=== PATIENT | female | born 1970 | race Caucasian/White ===

== ENCOUNTER 2024-05-22 18:59 | Emergency (ER) | payer BC, SELFPAY ==
[2024-05-22 19:06] VITALS: BP 118/74; PULSE 66; RESP 14; TEMP 35.9; O2SAT 97; BMI 26.9
--- NOTE | 2024-05-22 19:25 | ED.GENADULT ---
HPI - General Adult General Date Seen: 05/22/24 Chief complaint: Extremity Pain/Injury, Upper Stated complaint: fell and hurt rt thumb Time Seen by Provider: 05/22/24 19:24 History of Present Illness HPI narrative: Very pleasant 53-year-old female presenting to the ER today for right thumb pain and swelling. This afternoon, approximately 2 or 2-1/2 hours prior to arrival [place]. She jammed her thumb and falling. When she fell she fell forward and jammed her thumb on the ground. She thinks she probably landed on an outstretched hand. She did really catch her thumb and hyperextended on a pole or edge of the step. She has had pain primarily in the thenar eminence and has been developing bruising and swelling. She is not having any numbness or thumb but she did have some temporary numbness affecting the radial aspect of her 4th finger. She is not having any pain in her other fingers however. No pain in the palm of her hand. No trouble with range of motion of her fingers. She does have tenderness with attempted abduction, adduction, and opposition of her thumb. She has had pain since then. She has been trying to ice it but the pain is getting worse. Related Data Home Medications ?Medication ?Instructions ?Recorded ?Confirmed aspirin 81 mg capsule 81 mg PO DAILY 05/22/24 05/22/24 coenzyme Q10 100 mg capsule (Co 100 mg PO DAILY 05/22/24 05/22/24 Q-10) rosuvastatin 20 mg tablet 20 mg PO DAILY 05/22/24 05/22/24 Allergies Allergy/AdvReac Type Severity Reaction Status Date / Time No Known Drug Allergies Allergy Verified 05/22/24 19:04 [facility] Social History Smoking Status: Never smoker How often do you have a drink containing alcohol: never AUDIT-C Alcohol total score: 0 Non-prescribed substance use: denies use Exam Narrative: Exam Narrative: Constitutional: Appears well-developed and well-nourished. Active. Polite Non-toxic appearing. HENT: Head: Atraumatic. No signs of injury. Nose: No nasal discharge. Mouth/Throat: Mucous membranes are moist. Pharynx is normal. Tonsils symmetric. Uvula midline. Airway patent. Eyes: Conjunctivae normal and EOM are normal. Pupils are equal, round, and reactive to light. Right eye exhibits no discharge. Left eye exhibits no discharge. No icterus. Neck: Normal range of motion. Neck supple. No adenopathy. No stridor. Cardiovascular: Normal rate and regular rhythm. Normal radial pulse. Brisk distal cap refill in the thumb in each finger. Pulmonary/Chest: Effort normal. No stridor. No respiratory distress. Musculoskeletal: Right upper extremity: Clavicle, shoulder, humerus, elbow, forearm, nontender. No deformity. Her primary her of tenderness is her felt. She has ecchymosis and swelling affecting the thenar eminence. She has slow range of motion and thumb. She is able to oppose her thumb making an okay sign with her index finger but is not able to parts picker oppose the thumb across her hand to make an okay sign with her pinky finger. She also has pain with adduction and abduction of her thumb. She is not tender over the phalanges or the MCP joint but is tender over carpometacarpal joint and the thenar eminence/metacarpal. No tenderness over the anatomic snuff blocks. Remainder of the volar wrist is nontender. Dorsal wrist is nontender. She has limited flexion extension of the wrist because it exacerbates her thumb pain. Normal pronation/supination of forearm. Intact radial, median, ulnar nerve and intact digital nerve sensory function. Neurological: Alert. Normal strength. No cranial nerve deficit or sensory deficit. Coordination normal. GCS eye subscore is 4. GCS verbal subscore is 5. GCS motor subscore is 6. Skin: Skin is warm. No rash noted. Const: Vital Signs, click to edit/add: Vital Signs - 24 hr 05/22/24 19:06 Temperature 96.7 F L Pulse Rate [Pulse Oximeter] 66 Respiratory Rate 14 Blood Pressure [Ri ght Upper Arm] 118/74 Pulse Oximetry 97 Oxygen Delivery Me thod Room Air Course Vital Signs Vital signs: Initial Vital Signs Temperature 96.7 F L 05/22/24 19:06 Temperature Source Temporal Artery Scan 05/22/24 19:06 Pulse Rate 66 05/22/24 19:06 Pulse Rhythm Regular 05/22/24 19:06 Respiratory Rate 14 05/22/24 19:06 Blood Pressure 118/74 05/22/24 19:06 Blood Pressure Mean 88 05/22/24 19:06 Blood Pressure Position Sitting 05/22/24 19:06 Pulse Oximetry 97 05/22/24 19:06 Oxygen Delivery Method Room Air 05/22/24 19:06 Vital Signs Temperature 96.7 F L 05/22/24 19:06 Pulse Rate 66 05/22/24 19:06 Respiratory Rate 14 05/22/24 19:06 Blood Pressure 118/74 05/22/24 19:06 Pulse Oximetry 97 05/22/24 19:06 Oxygen Delivery Method Room Air 05/22/24 19:06 Temperature 96.7 F L 05/22/24 19:06 Pulse Rate 66 05/22/24 19:06 Respiratory Rate 14 05/22/24 19:06 Blood Pressure 118/74 05/22/24 19:06 Pulse Oximetry 97 05/22/24 19:06 Oxygen Delivery Method Room Air 05/22/24 19:06 Medications Administered Medications: Discontinued Medications Generic Name Dose Route Start Last Admin Trade Name Freq PRN Reason Stop Dose Admin Ibuprofen 600 mg 05/22/24 19:34 05/22/24 19:39 Ibuprofen 600 Mg Tablet PO 05/22/24 19:35 600 mg ONCE ONE Administration Medical Decision Making [facility] Narrative Medical decision making narrative: Very pleasant 53-year-old female presenting to the ER today with pain and ecchymosis and swelling affecting her right thumb, specifically the thenar eminence after she had a mechanical trip fall at the post office today. Differential would include trapezium or 1st metacarpal fracture, Dacosta's fracture, dislocation, wrist sprain. She is not having any pain or tenderness over the snuffbox to suggest scaphoid fracture. She is not really having pain over the MCP joint to suggest a gamekeeper's thumb. X-rays of the thumb are obtained and are fortunately negative for any fracture or dislocation. Suspect possible contusion or sprain. She is immobilized in a removable Velcro thumb spica splint here in the ER tonight. Discussed immobilization, rest, ice, elevation. Will treat supportively at home with Tylenol or ibuprofen if needed. Follow up in ortho clinic in 3-5 days if not substantially improved. Precautions for return to the ER reviewed. Imaging Data XR right thumb: Attestation: I have reviewed the pertinent imaging results. My impression: No acute fracture or dislocation. Radiologist's impression: Findings/Impression: Bones: Alignment is normal. No fractures or bone lesions. No sign of acute injury. Joint spaces: Mild degenerative changes of the thumb interphalangeal joint. Soft tissues: Unremarkable. No radiopaque foreign body. Discharge Plan Discharge Clinical Impression: Sprain of thumb Patient Disposition: Home, Self-Care Instructions: Sprain (ED) Additional Instructions: As we discussed, right now your x-rays look good. No signs of broken bones or any dislocations. We suspect the films either bruised or sprained from this fall. Please wear the splint while your sleeping and while you are up and around except for when your in the shower to help protect and immobilize her thumb. You can use ibuprofen or Tylenol if needed for pain. Use an ice pack for 20 minutes every 3-4 hours if needed. Your thumb should improve over the next 2-3 days while you are resting it. If it is not substantially improved by Saturday, call the [facility] to arrange an ER follow-up appointment. Call [phone]. Prescriptions: No Action aspirin 81 mg capsule 81 mg PO DAILY rosuvastatin 20 mg tablet 20 mg PO DAILY coenzyme Q10 [Co Q-10] 100 mg capsule 100 mg PO DAILY Follow Up/Referrals: Trinh Barragan MD [Primary Care Provider] - Stand Alone Forms: Bilibot Info Instructions
--- NOTE | 2024-05-22 19:26 | CRLHL7_ITS ---
For Patients: As a result of the Cures Act, medical imaging exams and procedure reports are released immediately into your electronic medical record. You may view this report before your referring provider. If you have questions, please contact your health care provider. Indication: Fall, blunt trauma, swelling and pain. Technique: Right thumb 3 views. Comparison: None. Findings/Impression: Bones: Alignment is normal. No fractures or bone lesions. No sign of acute injury. Joint spaces: Mild degenerative changes of the thumb interphalangeal joint. Soft tissues: Unremarkable. No radiopaque foreign body. Dictated by Nic Zepeda MD @ 05/22/2024 8:09:25 PM (Electronically Signed)
[2024-05-22] MEDS: IBUPROFEN 600 MG TABLET PO (19:39)
--- OUTSIDE RECORDS SUMMARY | 2024-05-22 19:46 | XMS_ITS | Clinical Summary ---
Author Organization [facility] Address [address] [place] [address] Care Team Providers Care Moderate Needs Teacher Name Role Phone Elsewhere, Pcp Primary Care Provider Unavailabl e Source Comments Patient records contain information from all sites at [facility]. For routine questions regarding patient records, call [phone] during business hours, M-F 8:00 AM - 5:00 PM Central Time. Record requests for emergency care only can be directed to [phone] at any time.[facility] Allergies No known active allergies Social History Tobacco Use Types Packs/Day Years Used Date Smoking Tobacco: Never Assessed Dental Answer Date Recorded Dental: Regular Dentist Unknown 02/16/20 24 Comments Unknown Sex and Gender Information Value Date Recorded Sex Assigned at Not on file Legal Sex Female 11:10 AM QUALITY CONSULTANT Gender Identity Not on file Sexual Orientation Not on file Last Filed Vital Signs Vital Sign Reading Time Taken Comments Blood Pressure 141/100 02/16/2024 12:30 PM CDT Pulse 63 02/16/2024 12:30 PM CDT Temperature 36.6 C (97.9 F) 02/16/2024 12:30 PM CDT Respiratory Rate 16 02/16/2024 12:30 PM CDT Oxygen Saturation 100% 02/16/2024 12:30 PM CDT Inhaled Oxygen Concentration - - Weight 79.2 kg (174 lb 9.7 oz) 02/16/2024 9:47 A M CDT Height 170.2 cm (5' 7) 02/16/2024 9:52 AM CDT Body Mass Index 27.35 02/16/2024 9:47 AM CDT Plan of Treatment Health Maintenance Due Date Last Done Comments HIV Screening 1968 Hepatitis C Screening 1968 Hepatitis B Vaccines (1 of 3 - 19+ 3-dose series) 1987 Cervical/Vaginal Cancer Screening 02/11/2023 02/12/2020 Depression Screening (Annual PHQ-2) 06/17/2023 COVID-19 Vaccine (2023- season) 2024 01/31/2022, 05/18/2021, 08/24/2020, Additional history exists Influenza Vaccine (#1) 2024 , 03/13/2022, 02/12/2020, Additional history exists Mammogram 07/16/2024 07/16/2023, 06/19, 04/06/2022, Additional history exists Fasting Glucose for Diabetes Screening 02/06/2025 02/06/2022, 06/01/2021, 02/07/2021, Additional history exists Lipid (Cholesterol) Screening 02/06/2027 02/06/2022, 06/01/2021, 02/07/2021, Additional history exists DTaP,Tdap,and Td Vaccines (3 - Td or Tdap) 02/07/2032 02/06/2022, 01/25/2012, 11/29/2001 Zoster Vaccines Completed 02/12/2020, 01/21/2019 Colonoscopy Discontinued 04/07/2021 Colorectal Cancer Screening Discontinued CT Colonography Discontinued Cologuard Discontinued FIT Discontinued IPV Vaccines Aged Out No longer eligi ble based on patient's age to complete this topic Pneumococcal vaccine (0-64 years) Aged Out No longer eligible based on patient's age to complete this topic Insurance [facility] [place] [id number] Care Teams Moderate Needs Teacher Relationship Specialty Start Date End Date Elsewhere, Pcp PCP - General Internal Medicine 02/16/24
--- OUTSIDE RECORDS SUMMARY | 2024-05-22 19:46 | XMS_ITS | Clinical Summary ---
Author Organization [facility] er Address [address] [place] [address] Care Team Providers Care Automatic Maintainer Name Role Phone None, Pcp Primary Care Provider Unavailabl e Allergies No known active allergies Medications rosuvastatin (CRESTOR) 20 MG tablet Take 1 tablet (20 mg total) by mouth daily 4 Active latanoprost (XALATAN) 0.005 % ophthalmic solution Administer 1 drop into affected eye(s) daily 4 Active cholecalciferol , vitamin D3, 200 Unit tablet Take by mouth Active cetirizine (ZyrTEC) 10 MG chewable tablet Chew Acti ve Active Problems Problem Noted Date Diagnosed Date Menorrhagia with regular cycle 01/20/2018 Mixed hyperlipidemia 01/20/2018 Endometriosis 12/09/2008 Radiculopathy 12/09/2008 Overview (02/16/2024): Hx lumbar surgery. Mostly resolved, managed with exercise. Immunizations Name Administration Dates Next Due Hepatitis A 02/03/2021,01/30/2017 Influenza 6mo-64yrs Quad Pre servative Free IM 03/19/2023,03/13/2022,02/12/2020,2019,03/23/2015,03/12/2014 Influenza, Split Virus, Triv alent, Preservative 03/07/2012 TD Preservative Free 11/29/2001 Td 11/29/2001,09/15/2001 Tdap 02/06/2022,01/25/2012 Zoster Recombinant 02/12/2020,01/21/2019 Social History Tobacco Use Types Packs/Day Years Used Date Smoking Tobacco: Never Passive Smoke Exposure: Never Smokeless Tobacco: Never Tobacco Cessation:Counseling Given: Not Answered Alcohol Use Standard Drinks/Week Comments Yes 0 (1 standard drink = 0.6 oz pur e alcohol) Comments No Sex and Gender Information Value Date Recorded Sex Assigned at Not on file Legal Sex Female 8:29 AM CDT Gender Identity Not on file Sexual Orientation Not on file Last Filed Vital Signs Vital Sign Reading Time Taken Comments Blood Pressure 144/99 02/16/2024 8:39 AM CDT Pulse 73 02/16/2024 8:39 AM CDT Temperature 36.6 C (97.9 F) 02/16/2024 8:39 AM CDT Respiratory Rate 16 02/16/2024 8:39 AM CDT Oxygen Saturation 99% 02/16/2024 8:39 AM CDT Inhaled Oxygen Concentration - - Weight 79 kg (174 lb 2.6 oz) 02/16/2024 8:39 AM CDT Height 173 cm (5' 8.11) 02/16/2024 8:39 AM CDT Body Mass Index 26.4 02/16/2024 8:39 AM CDT Plan of Treatment Health Maintenance Due Date Last Done Comments CT Colonography 1968 Colonoscopy 1968 Colorectal Cancer Screening 1968 FIT-DNA 1968 Sigmoidoscopy 1968 iFOBT 1968 Pap Smear 02/11/2023 02/12/2020 Mammogram 07/16/2024 07/16/2023, 06/19, 04/06/2022, Additional history exists DTaP,Tdap,and Td Vaccines (3 - Td or Tdap) 02/07/2032 02/06/2022, 01/25/2012, 11/29/2001, Additional history exists Zoster Vaccines Completed 02/12/2020, 01/21/2019 COVID-19 Vaccine Completed 03/26/2024, 08/2022, 01/31/2022, Additional history exists Influenza Vaccine Completed 03/26/2024, , 03/19/2023, Additional history exists HPV Vaccines Aged Out No longer eligi ble based on patient's age to complete this topic Pneumococcal Vaccine: Pediatrics (0 to 5 Years) and At-Risk Patients (6 to 64 Years) Aged Out No longer eligible based on patient's age to complete this topic Insurance [facility] Care Teams Automatic Maintainer Relationship Specialty Start Date End Date None, Pcp [address] [place] [place] [address] PCP - General Manager Policy 02/16/24
--- OUTSIDE RECORDS SUMMARY | 2024-05-22 19:46 | XMS_ITS | Encounter Summary ---
Author Organization [facility] er Address [address] [place] [address] Care Team Providers Care Residential Door Installer Name Role Phone None, Pcp Primary Care Provider Unavailabl e Encounter Details Date Type Department Care Team (Latest Contact Info) Description 02/16/2024 Travel Social History Tobacco Use Types Packs/Day Years Used Date Smoking Tobacco: Never Passive Smoke Exposure: Never Smokeless Tobacco: Never Alcohol Use Standard Drinks/Week Comments Yes 0 (1 standard drink = 0.6 oz pur e alcohol) Comments No Sex and Gender Information Value Date Recorded Sex Assigned at Not on file Legal Sex Female 8:29 AM CDT Gender Identity Not on file Sexual Orientation Not on file documented as of this encounter Plan of Treatment Not on file documented as of this encounter Visit Diagnoses Not on filedocumented in this encounter Care Teams Residential Door Installer Relationship Specialty Start Date End Date None, Pcp [address] [place] [address] PCP - General Smash Piecer 02/16/24 documented as of this encounter
--- OUTSIDE RECORDS SUMMARY | 2024-05-22 19:46 | XMS_ITS | Encounter Summary ---
Author Organization [facility] Address [address] [place] [address] Care Team Providers Care Meteorological Equipment Repairer Name Role Phone Elsewhere, Pcp Primary Care Provider Unavailabl e Reason for Visit * Reason Comments Toenail Problem Left 1st toe Encounter Details Date Type Department Care Team (Late st Contact Info) Description 02/16/2024 9:46 AM CDT - 02/16/2024 12:34 PM CDT Emergency [facility] Emergency Department [address] [place] [address] Adin Gruber P.A.-C. [address] [place] [id number] Injury Toenail Initial Left (Primary Dx) Discharge Disposition: Home or Self Care Social History Tobacco Use Types Packs/Day Years Used Date Smoking Tobacco: Never Assessed Dental Answer Date Recorded Dental: Regular Dentist Unknown 02/16/20 24 Comments Unknown Sex and Gender Information Value Date Recorded Sex Assigned at Not on file Legal Sex Female 11:10 AM CMA Gender Identity Not on file Sexual Orientation Not on file documented as of this encounter Last Filed Vital Signs Vital Sign Reading [...] Mass Index 27.35 02/16/2024 9:47 AM CDT documented in this encounter Discharge Instructions * Discharge Instructions* Adin Gruber P.A.-C. - 02/16/2024 12:21 PM CDT Continue to monitor symptoms. If they worsen significantly, change in character or your otherwise concerned you should return to the emergency department. We wrapped her toe for added protection. Please keep wrapped as able. This should protect the nail from further damage. Follow up with your regular doctor as necessary. The nail should push out and fall off eventually with a new nail growing behind it. * Attachments The following attachments cannot be sent through Care Everywhere. * Nail Avulsion (Rwandan) documented in this encounter ED Notes * Adin Gruber P.A.-C. - 02/16/2024 11:55 AM CDT SUBJECTIVE CHIEF COMPLAINT/REASON FOR VISIT Toenail Problem (Left 1st toe) HISTORY OF PRESENT ILLNESS History provided by: Patient spanish interpreter/translator needed/used: no 53-year-old female arrives to our emergency department complaining of left great toe pain. Chart review finds history of hyperlipidemia, endometriosis, among other diagnoses. Patient describes stabbing her great toe recently. States the toenail has been lifted in his causing her pain. It bled quitea bit originally but has since stopped. Denies significant pain with walking but it is uncomfortable. Describes the toenail getting caught on things as it is lifted. No fevers or chills. No pain within the foot or ankle joint. She was seen at [facility] and informed they would not remove the nail and thatit would heal on its own. REVIEW OF SYSTEMS Constitutional: Negative for chills and fever. Respiratory: Negative for shortness of breath. Cardiovascular: Negative for chest pain. Gastrointestinal: Negative for abdominal pain. Musculoskeletal: Positive for extremity pain. Negative for joint swelling and myalgias. OBJECTIVE Initial Vitals Temperature 02/16/24 0953 36.9 ??C Pulse Rate 02/16/24 0953 71 Heart Rate -- Resp Rate 02/16/24 0953 16 Blood Pressure 02/16/24 0953 (!) 139/98 SpO2 02/16/24 0953 99 % Pain Score 02/16/24 0952 3 PHYSICAL EXAMINATION Constitutional: Nursing note and vitals reviewed. No distress. HENT: Head: Normocephalic and atraumatic. Nose: Nose normal. Mouth/Throat: Mucous membranes are moist. Eyes: Conjunctivae are normal. Right eye exhibits no discharge. Left eye exhibits no discharge. Neck: Neck supple. Cardiovascular: Normal rate. Pulses are strong and palpable. Capillary refill: takes less than 3 secondsEdema: no edema noted Pulmonary/Chest: Effort normal. No respiratory distress. Abdominal: Soft. Bowel sounds are normal. exhibits no distension. Musculoskeletal: General: No deformity. Cervical back: Normal range of motion and neck supple. Comments: Inspection of the left foot finds her great toenail lifted from the nailbed. It is intactand appears to be well seated within the cuticle. She has some minor blood CBD underneath the nail but is not actively bleeding. It is tender to the touch throughout. No tenderness within the tip of the toe or around the joint line however. Pressing on the nail does cause some discomfort. She is able to range the toe appropriately. Neurological: Alert. Skin: Skin is warm and dry. Psychiatric: She has a normal mood and affect. ASSESSMENT/PLAN 53-year-old female here with left great toenail injury. Pain and discomfort with a lifted nail. Able to ambulate and bear weight. Physical exam found no joint tenderness arrange motion deficit. No crepitus. Nailbed is lifted with a small amount of blood seepage within the nailbed. Nailbed does appear to be intact however in the nail is connected at its base. Differential diagnosis includes acute fracture, acute dislocation, infected joint, gout, nailbed compromise, among other diagnoses. Hemodynamically stable. Afebrile. Radiographs negative for acute fracture. No evidence of dislocation either, and clinical exam is free of deformity. Joint appears without swelling or erythema lead me to doubt she has gout. Nailbed appears to be intact. The nail itself appears to be well seated. No indication of a subungual hematoma and with the nail lifted it is free of pressure. She appears to have nail damage at this time without severe sequelae. Discussed options with the patient. We will wrap it with a Coban to protect it. I do believe it will receive itself with time, possibly falling off with a new nail replacing it. Our goal is to protect it from further damage by being caught on objects. Pain management should be with [id number]. She should consider follow-up with your regular doctor as needed. May consider Podiatry as well. Educational handouts were given. Patient expressed agreement understanding of treatment plan. Assessment and Plan PROBLEMS ADDRESSED THIS VISIT Left great toe pain. I reviewed the following external records: office records. ED Course as of 02/18/24905Feb 18, [id number] Radiograph completed during the visit was negative for an acute fracture. Final Diagnoses: as of 02/18/24905 Injury Toenail Initial Left The following tests were considered but ultimately not performed: No additional tests considered today. Escalation of care, including admission/observation, considered: Outpatient management appropriate. Adin Gruber P.A.-C. 02/18/24905 * Nai Aguilar R.N., CHARLES - 02/16/2024 9:54 AM CDT Last night pt's other son stepped on her left great toe. Left toenail is thick. Pt c/o 3/10 pain but when she touches it the pain increases. Pt went to [facility] initially then came here. Pt's other son isgetting and she just wants to be able to dance with him. Nai Aguilar R.N., CHARLES 02/16/24 09 documented in this encounter Plan of Treatment Not on file documented as of this encounter Procedures Procedure Name Priority Date/Time Associated Diagnosis Comments DX TOES LEFT 3 VIEWS RAD - Semiurgent (Fast; most ED patients; some inpatients) 02/16/2024 11:14 AM CDT documented in this encounter Results * DX Toes Left 3 Views (02/16/2024 11:14 AM CDT) Anatomical Region Laterality Modality Lower Extremity, Toes, Muscu loskeletal RST LOS, Musculoskeletal ARZ LOS, Muskuloskeletal FLA LOS Left Digit al Radiography Impressions 02/16/2024 11:17 AM CDT Soft tissue swelling left great toe. No evidence of acute fracture. Narrative 02/16/2024 11:17 AM CDT EXAM: DX TOES LEFT 3 VIEWS Procedure Note Bernie De Santiago M.D. - 02/16/2024 EXAM: DX TOES LEFT 3 VIEWS IMPRESSION: Soft tissue swelling left great toe. No evidence of acute fracture. Hans Comer M.D. [facility]AG[facility] PROCEDURES Final Result documented in this encounter Visit Diagnoses Diagnosis Injury Toenail Initial Left- Primary documented in this encounter Care Teams Meteorological Equipment Repairer Relationship Specialty Start Date End Date Elsewhere, Pcp PCP - General Internal Medicine 02/16/24 documented as of this encounter
--- OUTSIDE RECORDS SUMMARY | 2024-05-22 19:46 | XMS_ITS | Continuity of Care Document ---
Author Organization [facility] Address [address] [place] [address] [address] [place] [address] Phone Care Team Providers Care Reconciliation Machine Operator Name Role Phone Unavailable Unavailable Unavailable Medications Medication Instructions Dosage Effective Dates (start - stop) Status Comments Vicodin 5 mg-500 mg Tab 1-2 q 6 hours prn - Active [place]walk 10 mg-325 mg Tab 1-2 q 6 hours prn - Active Keflex 500 mg Cap 1 po qid x 10 days - Active Procedures Procedure Date Postop followup visit Low back disk surgery/decompress 2005 Advance Directives Directive Yes / No Effective Date File Name No Information Encounters Encounter Description Practice Location Reason(s) For Visit Diagnoses Date Provider Providers Copied on Encounter [facility], [address] [place] [address], [address], [place] tel:[phone] Aethon No Information [address] [facility], [address] [place] [address], [address], [place] tel:[phone] Aethon No Information [address] [facility], [address] [place] [address] [address], [place], [place], [id number], [place]. tel:[phone] Referring Provider: Gee Tavarez, [address], [place], [address]. tel:[phone] [facility], [address] [place], [place] [address], [place], [address], [place] tel:[phone] [facility] No Information 2-[address] [facility], [address], [place], [place], [id number], . tel:[phone] [facility], [address] [place], [place] [address] [address], [place], [place], [facility], [place] tel:[phone] [facility] No Information May-0 3-[address] [facility], [address], [place], [id number], [place]. tel:[phone] [facility], [address] [place], [place] [address], [place], [place], [facility], [place] tel:[phone] [facility] No Information May-0 1-[address] [facility], [address], [place], [place], [id number], . tel:[phone] Referring Provider: Gee Tavarez, [address], [address]. tel:[phone] Family History Family Member Type Diagnosis Age At Onset No Information Payers Payer name Insurance type Covered republican ID Authoriza tion(s) [employer] CI [id number] Social History Type Description Quantity Date Captured Comments Sex Female Smoking Status No Information Chief Complaint And Reason For Visit No Information Reason For Referral Reason For Referral No Information History Of Present Illness Encounter Date Complaint History Of Prese nt Illness No Information Functional Status Date Functional Assessmen t No Information Instructions Date Instruction Additional Infor mation No Information Assessments Type Assessment Date No Information Patient Care Teams Name Effective Dates (start - stop) Status Members No Information
--- OUTSIDE RECORDS SUMMARY | 2024-05-22 19:46 | XMS_ITS | Referral Summary ---
Author Organization [facility] Address [address] [place] [address] Care Team Providers Care Nail Setter Name Role Phone Elsewhere, Pcp Primary Care Provider Unavailabl e Source Comments Patient records contain information from all sites at [facility]. For routine questions regarding patient records, call [phone] during business hours, M-F 8:00 AM - 5:00 PM Central Time. Record requests for emergency care only can be directed to [phone] at any time.[facility] Allergies No known active allergies Social History Tobacco Use Types Packs/Day Years Used Date Smoking Tobacco: Never Assessed Dental Answer Date Recorded Dental: Regular Dentist Unknown 02/16/20 24 Comments Unknown Sex and Gender Information Value Date Recorded Sex Assigned at Not on file Legal Sex Female 11:10 AM [employer] Gender Identity Not on file Sexual Orientation [...] 02/16/2024 9:47 AM CDT Plan of Treatment Not on file Insurance [facility] DELLA MOSQUEDA [id number] Care Teams Nail Setter Relationship Specialty Start Date End Date Elsewhere, Pcp PCP - General Internal Medicine 02/16/24
--- OUTSIDE RECORDS SUMMARY | 2024-05-22 19:46 | XMS_ITS ---
Author Organization [facility] Address [address] [place] [address] Care Team Providers Care Relay Engineer Name Role Phone Unavailable Unavailable Unavailable Surgery Details Not on file Complications Check Surgery Details section. Procedure Estimated Blood Loss Check Surgery Details section. Procedure Findings Check Surgery Details section. Procedure Specimens Taken Check Surgery Details section.
--- OUTSIDE RECORDS SUMMARY | 2024-05-22 19:47 | XMS_ITS | Encounter Summary ---
Author Organization [facility] Address [address] [place] [address] Care Team Providers Care Environmental Health Inspector Name Role Phone None, Pcp Primary Care Provider Unavailabl e Reason for Visit * Reason Comments Toe Injury Left 1st Encounter Details Date Type Department Care Team (Late st Contact Info) Description 02/16/2024 8:38 AM CDT - 02/16/2024 9:07 AM CDT Emergency [facility] Emergency Room [address] [place] [id number] Roddy Drummond MD [address] [place], [place] [id number] Nail avulsion of toe, initial encounter (Primary Dx) Discharge Disposition: Home or Self [...] Mass Index 26.4 02/16/2024 8:39 AM CDT documented in this encounter Discharge Instructions * Discharge Instructions* Roddy Drummond MD - 02/16/2024 8:45 AM CDT Soak your toe in warm soapy water. A new nail should grow out but I would leave the old nail in place unless it falls off on its own, as this will protect your nailbed. Use Tylenol or Advil as neededfor pain. * Attachments The following attachments cannot be sent through Care Everywhere. * Nail Avulsion (Bhutanese) documented in this encounter Medications at Time of Discharge cetirizine (ZyrTEC) 10 MG chewable tablet Chew cholecalciferol, vitamin D3, 200 Unit tablet Take by mouth latanoprost (XALATAN) 0.005 % ophthalmic solution Administer 1 drop into affected eye(s) daily 02/05/2024 rosuvastatin (CRESTOR) 20 MG tablet Take 1 tablet (20 mg total) by mouth daily 02/10/2024 documented as of this encounter ED Notes * Nic Casiano RN - 02/16/2024 8:45 AM CDT Patient arrives with concern of Left Great Toenail Injury she sustained last evening. * Roddy Drummond MD - 02/16/2024 8:29 AM CDT HPI Chief Complaint Patient presents with Toe Injury Left 1st Patient is a 53-year-old female who got her left great toenail caught on something last night and partially avulsed it. It is lifted up and is quite painful and she wants me to remove the nail completely. Patient History Patient History No Known Allergies No past medical history on file. No past surgical history on file. No family history on file. Social History Tobacco Use Smoking status: Not on file Smokeless tobacco: Not on file Substance Use Topics Alcohol use: Not on file Drug use: Not on file Review of Systems Review of Systems Musculoskeletal: Injury to left great toenail Physical Exam ED Triage Vitals [02/16/24 0839] Temp Heart Rate Resp BP 36.6 ??C (97.9 ??F) 73 16 (!) 144/99 SpO2 Temp Source Heart Rate Source Patient Position 99 % Temporal Monitor Sitting BP Location FiO2 (%) Weight -- -- 79 kg (174 lb 2.6 oz) Body mass index is 26.4 kg/m??. Physical Exam Vitals and nursing note reviewed. Constitutional: Appearance: Normal appearance. Cardiovascular: Rate and Rhythm: Normal rate. Pulmonary: Effort: Pulmonary effort is normal. Musculoskeletal: Cervical back: Normal range of motion. Comments: Her left great toenail is partially avulsed it is lifted up. No significant bleeding or drainage coming from it. Is quite painful to palpate it. Skin: General: Skin is warm and dry. Neurological: General: No focal deficit present. Mental Status: She is alert and oriented to person, place, and time. Mental status is at baseline. Psychiatric: Mood and Affect: Mood normal. Behavior: Behavior normal. Thought Content: Thought content normal. Judgment: Judgment normal. No data recorded Procedures Labs Reviewed - No data to display ED Course & MDM Medical Decision Making I explained to her that I would rather leave the nail in place as it is going to be painful at the nailbed with her the nail as they are not and the nail currently will help protect the nailbed somewhat. A new nail will grow out and eventually this 1 will fall off. Recommend soaking in warm soapy water using Tylenol Advil as needed. Problems Addressed: Nail avulsion of toe, initial encounter: acute illness or injury Risk OTC drugs. Follow Up Follow-up with your primary care provider as needed. Patient's Medications No medications on file Discharge Instructions Attached Instructions NAIL AVULSION (LUXEMBOURGISH) [[id number]] Discharge Instructions Soak your toe in warm soapy water. A new nail should grow out but I would leave the old nail in place unless it falls off on its own, as this will protect your nailbed. Use Tylenol or Advil as neededfor pain. ED COURSE and CLINICAL IMPRESSION Clinical Impressions as of 02/16/24 08 Nail avulsion of toe, initial encounter Disposition: Discharge Roddy Drummond MD 02/16/24 0847 documented in this encounter Plan of Treatment Not on file documented as of this encounter Visit Diagnoses Diagnosis Nail avulsion of toe, initial encounter- Primary documented in this encounter Care Teams Environmental Health Inspector Relationship Specialty Start Date End Date None, Pcp [address] [place] [address] PCP - General Circus Trainer 02/16/24 documented as of this encounter
--- OUTSIDE RECORDS SUMMARY | 2024-05-22 19:47 | XMS_ITS | Data Portability ---
Author Organization [facility] Address [address] [facility] [address] [place] [address] Care Team Providers Care House Carpenter Name Role Phone NATALI BRUNO Primary Care Provider Assessment No assessment recorded. Plan of Treatment Reminders Order Date Submit Date Provider Last Modified By Organization Details Last Modified Time Details Appointments None recorded. Lab urinalysi s, dipstick 2023 024 [facility], [address], [place], [address], 4 10:49:16 urinary tract pathogens panel, NICOLE+probe , urine - add on labs: Chlamydia Trachomat is, Cytomegal ovirus, Herpes Simplex Virus (HSV) types 1/2, LATHA Virus, BK Virus, MRSA Phenotype s, Mycobacte rium Tuberculo sis, Nesseria Gonorrhea , Trichomon as Vaginalis 2023 024 [facility], [address] [place], [address], 4 09:48:22 Referral None recorded. Procedures None recorded. Surgeries None recorded. Imaging None recorded. Medication Orders None recorded. Patient TargetsNo targets recorded. Patient InstructionsNo instructions recorded. Reason for Referral None Reported. Results Created Date Observation Date Name Description Value Unit Range Abnormal Flag Note LastModifiedBy Organization Detail LastModifiedTime 05/04/20 24 05/04/2024 DAVID BILLS UTI- RECUR RENT, PERSI STENT , COMPL ICATE D UTI performingsi te Not Available [facility] [address], [place], [address], 05/06/2024 09:48:22 05/04/20 24 05/04/2024 DAVID BILLS UTI- RECUR RENT, PERSI STENT , COMPL ICATE D UTI performingsi te Not Available [facility] [address] [place], [address], 05/06/2024 09:48:27 05/04/20 24 05/04/2024 urina lysis , dipst ick BLOOD Trace (5 RBC/uL ) Not Available [facility] [address], [place], [address], 04/30/2024 09:21:36 05/04/20 24 05/04/2024 urina lysis , dipst ick BILIRUBIN Negati ve Not Available [facility] [address], [place], [address], 04/30/2024 09:21:36 05/04/20 24 05/04/2024 urina lysis , dipst ick UROBILINOGEN 0.2 mg/dL (Norm) Not Available [facility] [address], [place], [address], 04/30/2024 09:21:36 05/04/20 24 05/04/2024 urina lysis , dipst ick KETONES Negati ve Not Available [facility] [address], [place], [address], 04/30/2024 09:21:36 05/04/20 24 05/04/2024 urina lysis , dipst ick PROTEIN Negati ve Not Available [facility] [address], [place], [address], 04/30/2024 09:21:36 05/04/20 24 05/04/2024 urina lysis , dipst ick NITRITES Negati ve Not Available [facility] [address], [place], [address], 04/30/2024 09:21:36 05/04/20 24 05/04/2024 urina lysis , dipst ick GLUCOSE Negati ve Not Available [facility] [address], [place], [address], 04/30/2024 09:21:36 05/04/20 24 05/04/2024 urina lysis , dipst ick p.H. 6.0 Not Available [facility] [address], [place], [address], 04/30/2024 09:21:36 05/04/20 24 05/04/2024 urina lysis , dipst ick S.G. (Specific [place]) 1.010 Not Available [facility] [address], [place], [address], 04/30/2024 09:21:36 05/04/20 24 05/04/2024 urina lysis , dipst ick LEUKOCYTES Negati ve Not Available [facility] [address], [place], [address], 04/30/2024 09:21:36 04/29/20 24 11/08/2023 CT, urogr am No observ ation record ed. [email or web address] Not Available 11:45:34 Result Notes None recorded. Procedures Surgical History Date Name Laterality Status Provider Name and Address Organization Details Recorded Time Bladder Scan completed EVERETT CASAS PA-C [address] [place] [address],[address], [place], [address], [facility] 05/04/2024 10:45:44 section completed EVERETT CASAS PA-C [address] [place] [address],[address], [place], [address], [facility] 05/04/2024 10:43:10 Imaging Results Imaging Date Name Status LastModified by Organ ation Details LastModified Time 11/08/2023 CT, urogram completed [email or web address] Information not available 04/29/2024 11:45:34 Procedure Notes None recorded. Medical Equipment None Reported. Allergies No known drug allergies Medications Name Sig Start Date Stop Date Status Note LastModified by Organization Details LastModified Time latanoprost 0.005 % eye drops INSTILL 1 DROP INTO BOTH EYES AT BEDTIME active Not Available Not Available No t Available etodolac 300 mg capsule PLEASE SEE ATTACHED FOR DETAILED DIRECTION S active Not Available Not Available No t Available cephalexin 500 mg capsule TAKE 1 CAPSULE BY MOUTH THREE TIMES DAILY FOR 7 DAYS. 05/04 completed Not Available Not Available Not Available methylpredn isolone 4 mg tablets in a dose pack TAKE 6 TABLETS ON DAY 1 DIRECTED ON PACKAGE AND DECREASE BY 1 TAB EACH DAY FOR A TOTAL OF 6 DAYS 05/04 completed Not Available Not Available Not Available DentaGel 1.1 % BEGIN THE DAY AFTER SURGERY - USE DIRECTED ON THE PACKAGE 05/04 completed Not Available Not Available Not Available rosuvastati n 20 mg tablet TAKE 1 TABLET BY MOUTH EVERY DAY active Not Available Not Available No t Available chlorhexidi ne gluconate 0.12 % mouthwash PLEASE SEE ATTACHED FOR DETAILED DIRECTION S 05/04 completed Not Available Not Available Not Available sodium fluoride 1.1 %-potassium nitrate 5 % dental paste BRUSH TEETH THOROUGHL Y FOR AT LEAST 1 MINUTE & EXPECTORA TE. DO NOT RINSE. USE AT NIGHT 05/04 completed Not Available Not Available Not Available Vitals Date Recorded Body height Body mass index (BMI) Body weight Provider Name and Address Organization Details Last Updated DateTime 05/04/2024 170.18 cm 26.9 kg/m2 15964.89 g EVERETT CASAS PA-C [address] [place] [address],[address], [address] 05/04/2024 10:41:16 Social History Question Answer Notes LastModified by Organizat ion Details LastModified Time Tobacco Smoking Status Never Smoker EVERETT CASAS PA-C [address] [place] [address],[facility] [address], [place], [address], [facility] 05/04/2024 10:42:20 What Is Your Level Of Alcohol Consumption? Occasional Information not available 05/04/2024 What Is Your Level Of Caffeine Consumption? Occasional Information not available 05/04/2024 What Was The Date Of Your Most Recent Tobacco Screening? 05/04/2024 Information not available 05/04/2024 Have You Ever Been Counseled For Unhealthy Alcohol Use? No Information not available 05/04/2024 Do You Use Any Illicit Or Recreational Drugs? No Information not available 05/04/2024 Has Tobacco Cessation Counseling Been Provided? No Information not available 05/04/2024 How Many Days In The Past Year Have You Consumed 4 Or More Drinks? 0 Information no t available 05/04/2024 Sex: Unknown Functional Status None recorded. Mental Status None recorded. Family History Relationship Description Onset Age of this Age Resolved Age Notes LastModified by Organization Details LastModified Time Mother Malignant tumor of lung [email or web address] Not available 05/04 10:41:49 Mother Malignant tumor of cervix jgasperlin Not available 05/04 10:41:57 Maternal Grandmother Family history of breast cancer [email or web address] Not available 05/04 10:42:08 Medical History Condition Response Sexually Transmitted Infection N Diabetes N Other N Bleeding Disorder N High Blood Pressure N Kidney Stones N High Cholesterol N GERD/Acid Reflux N Heart Disease N Cancer N Depression N Lung Disease N Gynecological HistoryNo gynecological history recorded. Obstetrics History GPAL:G 0 P 0 0 0 0 Immunizations Vaccine Type Date Status Provider Name and Address Organization Details Recorded Time Influenza, split virus, quadrivalent, preservative 03/19/2023 completed Larissa prajapati [facility] 05/04/2024 10:33:19 zoster recombinant 01/21/2019 completed Larissa prajapati [facility] 05/04/2024 10:33:19 zoster recombinant 02/12/2020 completed Larissa prajapati [facility] 05/04/2024 10:33:19 COVID-19, mRNA, LNP-S, PF, 100 mcg/0.5mL dose or 50 mcg/0.25mL dose 07/27/2020 completed Larissa prajapati [facility] 05/04/2024 10:33:19 COVID-19, mRNA, LNP-S, PF, 100 mcg/0.5mL dose or 50 mcg/0.25mL dose 08/24/2020 completed Larissa Ana null, [facility] 05/04/2024 10:33:19 COVID-19, mRNA, LNP-S, PF, 100 mcg/0.5mL dose or 50 mcg/0.25mL dose 01/31/2022 completed Larissa Ana null, [facility] 05/04/2024 10:33:19 COVID-19, mRNA, LNP-S, PF, 100 mcg/0.5mL dose or 50 mcg/0.25mL dose 05/18/2021 completed Larissa Perez null, [facility] 05/04/2024 10:33:19 COVID-19, mRNA, LNP-S, PF, 50 mcg/0.5 mL 03[facility]19[facility]2023 [facility] 10:33:19 COVID-19, mRNA, LNP-S, PF, 50 mcg/0.5 mL 03/26/2024 completed Larissa prajapati, [facility] 05/04/2024 10:33:19 Tdap 01/25/2012 completed Larissa Ana null, [facility] 05/04/2024 10:33:19 Tdap 02/06/2022 completed Larissa Ana null, [facility] 05/04/2024 10:33:19 Influenza, split virus, trivalent, preservative 03/07/2012 completed Larissa Ana null, [facility] 05/04/2024 10:33:19 Influenza, split virus, trivalent, PF 03/26/2024 completed Larissa Ana null, [facility] 05/04/2024 10:33:19 Td (adult), 2 Lf tetanus toxoid, preservative free, adsorbed 11/29/2001 completed Larissa Ana null, [facility] 05/04/2024 10:33:19 Hep A, adult 01/30/2017 completed Larissa Ronjamaicaen null, [facility] 05/04/2024 10:33:19 Hep A, adult 02/03/2021 completed Larissa Ronningen null, [facility] 05/04/2024 10:33:19 Influenza, split virus, quadrivalent, PF 08/26/2019 completed Larissa Ronningen null, [facility] 05/04/2024 10:33:19 Influenza, split virus, quadrivalent, PF 02/12/2020 completed Larissa Ronningen null, [facility] 05/04/2024 10:33:19 Influenza, split virus, quadrivalent, PF 03/12/2014 completed Larissa Ronningen null, [facility] 05/04/2024 10:33:19 Influenza, split virus, quadrivalent, PF 03/13/2022 completed Larissa Ronningen null, [facility] 05/04/2024 10:33:19 Influenza, split virus, quadrivalent, PF 03/23/2015 completed Larissa Ronningen null, [facility] 05/04/2024 10:33:19 Influenza, split virus, quadrivalent, PF 04/27/2021 completed Larissa Ronningen null, [facility] 05/04/2024 10:33:19 Past Encounters Encounter ID Performer Location Encounter Start Date Encounter Closed Date Diagnosis/Indication Diagnosis SNOMED-CT Code Diagnosis ICD10 Code [id number] Larissa Ana [facility] [address] [place] [address] 05/04/2024 10:22:28 05/06/2024 09:58:48 Blood in urine [id number] R31.9 Health Concerns Section Related Observation LastModified by Organization Detai ls LastModified Time None Recorded Concern Status LastModified by Organization Details LastModified Time None Recorded Advance Directives Directive None Recorded Payers Encounter Date Sequence Insurance Name Policy Number Policy Jacobson Covered Member ID Jacobson Member ID Guarantor Name 05/04/2024 1 [place] [id number] Salvador Rogers [id number] Laureen Rogers Notes Date Note Type Note Provider Name and Address Organization Details Recorded Time 05/04/2024 text/html 53 yo F referred to urology for intermittent UTI symptoms and gross hematuria. Reports 2 episodes of sudden onset gross hematuria over the last year. First occurrence in October 2023, urine culture and CT urogram negative at that time, hematuria resolved within hours. Was seen by Dr Samaniego in January 2024 at which time cystoscopy and urine cytology were both negative. Today Laureen reports she had another episode of gross hematuria with clots in March which again resolved within hours. Associated with severe urinary frequency/urgency for a couple hours. Seen by urgent care and prescribed abx for UTI, though urine culture was ultimately negative. Today she denies urinary symptoms or ongoing hematuria. Denies h/o nephrolithiasis. No smoking or chemical exposure history. Reports she has only had 2 UTIs in her life. Works as a teacher. UA: 5 RBC/hpf, otherwise negativePVR: 11 ml MHX: does take daily baby aspirinSurg Hx: , uterine ablationOB Hx: Recent imaging: CT urogram unremarkable (11/08/23) DELLA Thompson - [facility] 05/04/2024 11:54:21 OBGyn Episode No OBEpisode recorded.
--- OUTSIDE RECORDS SUMMARY | 2024-05-22 19:47 | XMS_ITS | Clinical Summary ---
Author Organization [facility] Address [place], [place] [address] Care Team Providers Care Salesperson Women'S Hats Name Role Phone Trinh Barragan MD Primary Care Provider [phone] Allergies No known active allergies Medications Medication Sig Dispensed Refills Start Date End Date Status aspirin (ECOTRIN) 81 mg enteric coated tablet Take 1 Tablet (81 mg) by mouth once daily. 0 04/06/2021 Active cholecalciferol, vitamin D3, (VITAMIN D3 ORAL) Take by mouth. Active cetirizine HCl (ALLER-KRYSTYNA ORAL) Take by mouth. Acti ve rosuvastatin (CRESTOR) 20 mg tabletIndications:Mixe d hyperlipidemia,Elevate d coronary artery calcium score Take 1 Tablet (20 mg) by mouth once daily. 90 Tablet 3 03/26/2024 Active latanoprost (XALATAN) 0.005 % ophthalmic solutionIndications:Bi lateral ocular hypertension Place 1 Drop into both eyes at bedtime. 7.5 mL 3 04/01/2024 Active Cholecalciferol-Soy Isoflavone 2,000-64 unit-mg tab Take by mouth. Active Cetirizine HCl (ZYRTEC) 10 mg chewable tablet Chew by mouth. Activ e latanoprost (XALATAN) 0.005 % ophthalmic solution Place 1 Drop into the eye(s). 02/05/2024 Active Active Problems Problem Noted Date Diagnosed Date Colon polyp 04/10/2021 Overview (04/10/2021): Colonoscopy 03/2021 SSA, repeat in 5 years Muscle tear 07/01/2018 Mixed hyperlipidemia 01/20/2018 Menorrhagia with regular cycle 01/20/2018 Atypical nevus 10/01/2014 Endometriosis, site unspecified 12/09/2008 Female infertility of unspecified origin 009 Radiculopathy 12/09/2008 Overview (01/26/2013): Hx lumbar surgery. Mostly resolved, managed with exercise. Resolved Problems Problem Noted Date Diagnosed Date Resolved Date Superficial thrombophlebitis 03/30/2022 03/30/2022 Skin lesion 01/26/2013 10/01/2014 Encounters Date Type Department Care Team Description 04/24/2024 3:00 PM RESTAURANT SHIFT LEADER Office Visit [facility] [address] [place] [phone] Tiki Sharma OD Follow Up (IOP check) 04/24/2024 Travel 04/03/2024 Telephone [facility] [address] [place] [address] Arleen Blank PA Appointment Request (CHANDRAKANT REFERRAL) 04/03/2024 Medical Messaging [facility] [address] [place] [address] Trinh Barragan MD Urgent Care 04/02/2024 3:55 PM CDT Office Visit [facility] [address] [address] Arianna Rowe MD UTI 04/02/2024 Travel 03/29/2024 Refill [facility] [address] [place] [phone] Tiki Sharma OD Refill Request (Latanoprost/) 03/26/2024 10:50 AM CDT Office Visit [facility] [address] [place] [address] Trinh Barragan MD Physical (53 year old/); Medication Management; Toenail (Wonders about referral to podiatry ) 03/26/2024 Travel 03/03/2024 Telephone [facility] [address] [place] [phone] Tiki Sharma OD Prior Authorization (latanoprost (XALATAN) 0.005 % ophthalmic solution Approved February 02, 2024 to March 03, 2025) from Last 3 Months Immunizations Name Administration Dates Next Due COVID-19 VACCINE SPIKEVAX (M ODERNA 50MCG/0.5ML) 12YO+ PFS 03/26/2024 COVID-19 vaccine (Moderna 100mcg/0.5mL) PF, MDV 01/31/2022,05/18/2021,08/24/2020,2020 Hepatitis A (Adult) 02/03/2021,01/30/2017 INFLUENZA, IIV3 PF (AGE >= 6 MO) 03/26/2024 Influenza, IIV3 (Age >=3 years) 03/07/2012 Influenza, IIV4 03/13/2022,,08/26/2019,2014,03/12/2014 Influenza, IIV4 (=>6mos) MDV 03/19/2023 Td (Age >=7 Years) 11/29/2001,09/15/2001 Td, Preservative Free (age > = 7 Years) 11/29/2001 Tdap 02/06/2022,01/25/2012 Zoster (Shingrix-RZV, recombinant) 02/12/2020, Family History Medical History Relation Name Comments Heart Disease Father stents placed age 64 Hypertension Father Other Father of staph s epsis from skin infection Cancer-breast Maternal Grandmother Cancer Mother lung, and cervi amol Diabetes Paternal Grandmother Hypertension Sister Cancer-colon No Family History Relation Name Status Comments Father Maternal Grandmother Mother Paternal Grandmother Sister Social History Tobacco Use Types Packs/Day Years Used Date Smoking Tobacco: Never Passive Smoke Exposure: Past Smokeless Tobacco: Never Tobacco Cessation:Counseling Given: Not Answered Passive Exposure Comments:Childhood Alcohol Use Standard Drinks/Week Comments Yes 2 (1 standard drink = 0.6 oz pur e alcohol) moderate PHQ-2 Answer Date Recorded PHQ-2 TOTAL SCORE 0 03/26/2024 Social Connections Answer Date Recorded Do you often feel lonely or isolated from those around you? 0 10/30/2023 Financial Resource Strain Answer Date R ecorded Difficulty of Paying Living Expenses 3 10/30/2023 Difficulty of Paying Living Expenses Not on file 10/30/2023 Food Insecurity Answer Date Recorded Do you worry your food will run out before you are able to buy more? 1 10/30/2023 Transportation Needs Answer Date Record ed Does lack of transportation keep you from medica l appointments? 1 10/30/2023 Does lack of transportation keep you from work, meetings or getting things that you need? 1 10/30/2023 Housing Stability Answer Date Recorded What is your housing situation today? 1 10/30/2023 Sex and Gender Information Value Date Recorded Sex Assigned at Female 05/09/2021 7:58 AM RESTAURANT SHIFT LEADER Gender Identity Female 05/09/2021 7:58 AM RESTAURANT SHIFT LEADER Sexual Orientation Straight 05/09/2021 7: 58 AM RESTAURANT SHIFT LEADER Obstetrics History Para Term AB IAB SAB Ectopic Multiple Livin g Live Births 1 Date Outcome GA Total Labor Labor/2nd/3rd Weight Sex Type Anes PTL Tanesha A1 A5 Name Clin Term Last Filed Vital Signs Vital Sign Reading Time Taken Comments Blood Pressure 120/74 04/02/2024 4:24 PM CDT MAP - 91 Pulse 75 04/02/2024 4:24 PM CDT Temperature 36.7 C (98 F) 04/02/2024 4:24 PM CDT Respiratory Rate 18 04/02/2024 4:24 PM CDT Oxygen Saturation 97% 04/02/2024 4:24 PM CDT Inhaled Oxygen Concentration - - Weight 78.3 kg (172 lb 9.6 oz) 03/26/2024 11:07 AM CDT Height 170.2 cm (5' 7) 03/26/2024 11:07 AM CDT Body Mass Index 27.03 03/26/2024 11:07 AM CDT Plan of Treatment Upcoming Encounters Date Type Department Care Team (Late st Contact Info) Description 07/07/2024 9:00 AM RESTAURANT SHIFT LEADER Office Visit [facility] [address] [facility] [place] [address] Arleen Blank PA [address] [address] 09/16/2024 7:40 AM CDT Office Visit [facility] [address] [facility] [place] [address] Tiki Sharma Olivia, OD [address] [facility] [place] [address] Health Maintenance Due Date Last Done Comments Mammogram for age 45-75 07/16/2024 07/16/19, 04/06/2022, 03/08/2021, Additional history exists Pap test for age 21-65 02/11/2025 , 02/12/2020, 01/30/2017, Additional history exists BMI (ht and wt on same day) for age 18+ 03/26/2025 03/26/2024, 02/06/2023, 02/06/2022, Additional history exists Depression screening for age 12+ 03/29/2025 03/29/2024, 03/26/2024, 02/06/2023, Additional history exists Lipids for age 45-75 04/02/2029 04/02/2024, 02/06/2023, 02/06/2022, Additional history exists Colonoscopy through age 75 04/07/203104/07, 04/07/2021, 04/07/2021 Tetanus booster 02/07/2032 02/06/2022, 01/15, 11/29/2001, Additional history exists Zoster (shingles) series for age 50+ Completed 02/12/2020, 01/21/2019 Hepatitis C screening for age 18-79 Completed 02/06/2022 Tdap Completed 02/06/2022, 01/25/2012 HIV for age 15-65 Completed 02/06/2023 COVID-19 vaccine series Completed 03/26/20, 03/19/2023, 01/31/2022, Additional history exists Influenza for age 50-64 Completed 03/26/20, 03/19/2023, 03/13/2022, Additional history exists Pneumococcal series for age 6-64 Aged Out No longer eligible based on patient's age to complete this topic Procedures Procedure Name Priority Date/Time Associated Diagnosis Comments TRICHOMONAS, NING, AND BACTERIAL VAGINOSIS BY NICOLE Routine 04/02/2024 5:03 PM CDT Urinary symptom or sign BASIC METABOLIC PANEL Routine 04/02/2024 4:45 PM CDT Diabetes mellitus screening LIPID PANEL W REFLEX MEASURED LDL Routine 04/02/2024 4:45 PM CDT Elevated coronary artery calcium score TX BLOOD COUNT COMPLETE AUTO&AUTO DIFRNTL WBC STAT 04/02/2024 4:43 PM CDT Hematuria, unspecified type URINE CULTURE Routine 04/02/2024 4:16 PM CDT Urinary symptom or sign UA W/ SEDIMENT EXAM REFLEXED PER CRITERIA Routine 04/02/2024 4:16 PM CDT Urinary symptom or sign XR MAMMO RAKEL BILAT SCREEN Routine 07/16/2023 4:57 PM RESTAURANT SHIFT LEADER Encounter for screening mammogram for malignant neoplasm of breast LC HIV-1/O/2, 4TH GENERATION Routine 02/06/2023 9:58 AM CDT Encounter for screening for HIV ANTI HCV Routine 02/06/2022 9:50 AM CDT Need for hepatitis C screening test COLONOSCOPY SCREENING Routine 04/07/2021 10:07 AM CDT Screening for colon cancer RETAIL WAREHOUSE SUPERVISOR THIN PREP PAP SCREEN IMAGED Routine 02/12/2020 9:00 AM CDT Screening for malignant neoplasm of cervix from Last 3 Months or Most Recently Relevant to Health Maintenance Results * TRICHOMONAS, NING, AND BACTERIAL VAGINOSIS BY NICOLE (04/02/2024 5:03 PM CDT) SURESWAB(R) ADV BACTERIAL VAGINOSIS (BV), TMA NEGATIVE NEGATIVE [facility] NING SPECIES NOT DETECTED NOT DETECTED [facility] NING GLABRATA NOT DETECTED NOT DETECTED [facility] Comment: Ning species C. albicans, C. tropicalis, C. parapsilosis, and/or C. dubliniensis can be detected, but not differentiated, in the Ning spp. result. TRICHOMONAS VAGINALIS (TV), TMA NOT DETECTED NOT DETECTED [facility] Other VAGINAL SWAB / Unknown 04/02/2024 5:03 PM CDT 04/02/2024 5:04 PM CDT Arianna Rowe MD MICROBIOLOGY [employer] [address] [place] [address], [employer] [address] [place] [address] * (ABNORMAL) LIPID PANEL W REFLEX MEASURED LDL (04/02/2024 4:45 PM CDT) CHOLESTEROL, TOTAL 178 <200 mg/dL [facility] HDL CHOLESTEROL 80 > OR = 50 mg/dL [facility] TRIGLYCERIDES 218(H) <150 mg/dL [facility] Comment: If a non-fasting specimen was collected, consider repeat triglyceride testing on a fasting specimen if clinically indicated. Andrew et al. J. of Clin. Lipidol. 2015;9:129-169. LDL-CHOLESTEROL 69 mg/dL (calc) [facility] Comment: Reference range: <100 Desirable range <100 mg/dL for primary prevention; <70 mg/dL for patients with CHD or diabetic patients with > or = 2 CHD risk factors. LDL-C is now calculated using the Marlo-Fay calculation, which is a validated novel method providing better accuracy than the Friedewald equation in the estimation of LDL-C. Marlo SS et al. KERI. 2013;310(19): 9291-1281 (http://education.PayParade Pictures/faq/OSB658) CHOL/HDLC RATIO 2.2 <5.0 (calc) [facility] NON HDL CHOLESTEROL 98 <130 mg/dL (calc) [facility] Comment: For patients with diabetes plus 1 major ASCVD risk factor, treating to a non-HDL-C goal of <100 mg/dL (LDL-C of <70 mg/dL) is considered a therapeutic option. Blood BLOOD SPECIMEN / Unknown 04/02/2024 4:45 PM CDT 04/02/2024 4:45 PM CDT Narrative [facility] - 04/03/2024 11:15 AM CDT FASTING:NO FASTING: NO Trinh Barragan MD CHEMISTRY [employer] [facility] [address] [place] [address], [facility] [address] [place] [address] * BASIC METABOLIC PANEL (04/02/2024 4:45 PM CDT) Pathologist [facility] GLUCOSE 89 65 - 139 mg/dL [facility] Comment: Non-fasting reference interval UREA NITROGEN (BUN) 18 7 - 25 mg/dL [facility] CREATININE 0.74 0.50 - 1.03 mg/dL [facility] EGFR 95 > OR = 60 mL/min/1. 73m2 [facility] BUN/CREATININE RATIO SEE NOTE: 6 - 22 (calc) [facility] Comment: Not Reported: BUN and Creatinine are within reference range. SODIUM 142 135 - 146 mmol/L [facility] POTASSIUM 3.7 3.5 - 5.3 mmol/L [facility] CHLORIDE 103 98 - 110 mmol/L [facility] CARBON DIOXIDE 32 20 - 32 mmol/L [facility] ELECTROLYTE BALANCE 7 7 - 17 mmol/L (calc) [facility] CALCIUM 9.9 8.6 - 10.4 mg/dL [facility] Blood BLOOD SPECIMEN / Unknown 04/02/2024 4:45 PM CDT 04/02/2024 4:45 PM CDT Narrative [facility] - 04/03/2024 11:15 AM CDT FASTING:NO FASTING: NO Trinh Barragan MD CHEMISTRY [employer] [facility] [address] [place] [address], [facility] [address] [place] [address] * (ABNORMAL) CBC & DIFF [[id number]] - STAT (04/02/2024 4:43 PM CDT) Pathologist [facility] WHITE BLOOD CELL COUNT 6.7 3.8 - 10.8 Thousand/u L [facility]) RED BLOOD CELL COUNT 5.11(H) 3.80 - 5.10 Million/uL [facility] HEMOGLOBIN 14.3 11.7 - 15.5 g/dL [facility] HEMATOCRIT 42.2 35.0 - 45.0 % [facility] ([facility]) MCV 82.6 80.0 - 100.0 fL [facility] ([facility]) MCH 28.0 27.0 - 33.0 pg [facility] ([facility] Care) MCHC 33.9 32.0 - 36.0 g/dL [facility] Comment: For adults, a slight decrease in the calculated MCHC value (in the range of 30 to 32 g/dL) is most likely not clinically significant; however, it should be interpreted with caution in correlation with other red cell parameters and the patient's clinical condition. RDW 11.7 11.0 - 15.0 % [facility] ([facility]) PLATELET COUNT 186 140 - 400 Thousand/u L [facility] (Urgent Care) MPV 8.9 7.5 - 12.5 fL [facility] (Urgent Care) ABSOLUTE NEUTROPHILS 4,556 1,500 - 7,800 cells/uL [facility] ([facility]) ABSOLUTE LYMPHOCYTES 1,508 850 - 3,900 cells/uL [facility] (Urgent Care) ABSOLUTE MONOCYTES 523 200 - 950 cells/uL [facility] ([facility]gent Care) ABSOLUTE EOSINOPHILS 94 15 - 500 cells/uL [facility] (Urgent Care) ABSOLUTE BASOPHILS 20 0 - 200 cells/uL [facility] (Urgent Care) NEUTROPHILS 68 % [facility] (Urgent Care) LYMPHOCYTES 22.5 % [facility] (Ur[facility] Care) MONOCYTES 7.8 % [facility] (Urgent Care) EOSINOPHILS 1.4 % [facility]) BASOPHILS 0.3 % [facility] Special[facility] (Urgent Care) Blood BLOOD SPECIMEN / Unknown 04/02/2024 4:43 PM CDT 04/02/2024 4:44 PM CDT Arianna Rowe MD HEMATOLOGY [facility] [address] [place] [address], [facility] (Urgent Care) [address] [place] [address] * URINE CULTURE [[id number]] (04/02/2024 4:16 PM CDT) CULTURE, URINE, ROUTINE SEE NOTE [facility] Comment: CULTURE, URINE, ROUTINE Micro Number: [id number] Test Status: Final Specimen Source: Urine Specimen Quality: Adequate Result: No Growth Urine URINE SPECIMEN / Unknown 04/02/2024 4:16 PM CDT 04/02/2024 4:16 PM CDT Arianna Rowe MD MICROBIOLOGY [employer] [facility] [address] [place] [address], [facility] [address] [place] [address] * (ABNORMAL) UA W/ SEDIMENT EXAM REFLEXED PER CRITERIA [[id number]] (04/02/2024 4:16 PM CDT) COLOR YELLOW YELLOW [facility]) APPEARANCE CLEAR CLEAR [facility]) SPECIFIC GRAVITY < OR = 1.005 1.001 - 1.035 [facility]) PH 5.5 5.0 - 8.0 [facility]) GLUCOSE NEGATIVE NEGATIVE [facility]) BILIRUBIN NEGATIVE NEGATIVE [facility] ([facility]) KETONES NEGATIVE NEGATIVE [facility] ([facility]) OCCULT BLOOD 2+(A) NEGATIVE [facility]) PROTEIN NEGATIVE NEGATIVE [facility]) NITRITE NEGATIVE NEGATIVE [facility]) LEUKOCYTE ESTERASE TRACE(A) NEGATIVE [facility] ([facility]) WBC UA 6-10(A) < OR = 5 /HPF [facility] ([facility]) RBC UA 0-2 < OR = 2 /HPF [facility]) SQUAMOUS EPITHELIAL CELLS UA 0-5 < OR = 5 /HPF [facility] ([facility]) BACTERIA UA FEW(A) NONE SEEN /HPF [facility]) NOTE UA [facility]) Comment: This urine was analyzed for the presence of WBC, RBC, bacteria, casts, and other formed elements. Only those elements seen were reported. Urine URINE SPECIMEN / Unknown 04/02/2024 4:16 PM CDT 04/02/2024 4:16 PM CDT Arianna Rowe MD [facility]INE [facility] [address] [place] [address], [facility] (Urgent Care) [address] [place] [address] * XR MAMMO RAKEL BILAT SCREEN (07/16/2023 4:57 PM RESTAURANT SHIFT LEADER) Anatomical Region Laterality Modality BREASTS, Breast Left, Breast Right Bilateral Mammography Impressions 07/17/2023 2:39 PM RESTAURANT SHIFT LEADER There is no radiographic evidence for malignancy. Recommend annual mammograms. MAMMOGRAM ASSESSMENT: ACR 1 Negative PATIENTS: You will also receive a letter with your examination results in an easy to read format. If you have questions about your results, please contact your referring provider. Narrative 07/17/2023 2:39 PM RESTAURANT SHIFT LEADER For Patients: As a result of the Century Cures Act, medical imaging exams and procedure reports are released immediately into your electronic medical record. You may view this report before your referring provider. If you have questions, please contact your health care provider. XR MAMMO RAKEL BILAT SCREEN [[id number]] CLINICAL HISTORY: This is an asymptomatic 53 y.o. patient. INDICATION FOR EXAM: Mammogram Screening. TECHNIQUE: CC & MLO views were obtained. This study was evaluated with the assistance of Computer-Aided Detection. Breast Tomosynthesis was used in interpretation. COMPARISON FILM: Yes 04/06/22 [facility] 03/08/21 [employer] FINDINGS: The breasts are heterogeneously dense, which may obscure small masses. There are no dominant masses, suspicious micro calcifications or areas of architectural distortion. Trinh Barragan MD MAMMO * LC HIV-1/O/2, 4TH GENERATION (02/06/2023 9:58 AM CDT) HIV Scr 4th Gen Non Reactive Non Reactive 02/08/2023 2:08 PM CDT [facility] Comment: HIV Negative HIV-1/HIV-2 antibodies and HIV-1 p24 antigen were NOT detected. There is no laboratory evidence of HIV infection. Blood BLOOD SPECIMEN / Unknown Venipuncture / Unknown 02/06/2023 9:58 AM CDT 02/06/2023 9:59 AM CDT Narrative [facility] - 02/08/2023 2:08 PM CDT Performed at: [facility] [address] [place], [place] [id number] Independent Agent Music Education: Matt Barnes MD, Phone: [phone] Trinh Barragan MD LABORATORY [facility] ([facility]) [facility] [place] [address], [place] * ANTI HCV (02/06/2022 9:50 AM CDT) Pathologist [facility] HEPATITIS C ANTIBODY Non-React vikas Non-React vikas 02/06/2022 7:00 PM CDT [facility] Comment:Antibodies to HCV no t detected; does not exclude the possibility of exposure to HCV. Blood BLOOD SPECIMEN / Unknown Venipuncture / Unknown 02/06/2022 9:50 AM CDT 02/06/2022 9:50 AM CDT Trinh Barragan MD SEND OUTS [facility] [address] [place] [address], [place] * COLONOSCOPY (04/07/2021 10:00 AM CDT) 04/07/2021 10:0 0 AM CDT Narrative Transcriptions Marlo Pulido MD - 04/07/2021 11:42 AM CDT Patient Name: Aissatou Carvajal Procedure Date: 04/07/2021 Gender: Female Date of : 1970 Admit Type: Outpatient Procedure: Colonoscopy Proceduralist: Marlo Pulido MD , Glendy Saavedra, RN(Nurse) Referring MD: Trinh Barragan Indications/Pre-Op Diagnosis: Screening for colorectal malignant neoplasm, This is the patient's first colonoscopy Medications: Fentanyl 100 micrograms IV, Midazolam 4 mgIV, The level of sedation administered wasmoderate Procedure Description: The patient had risks, benefits and alternatives explained to andgave informed consent. The patient had a stable cardiopulmonary status and judged an adequate candidate for conscious sedation. The Colonoscope was passed through the anus and advanced to thececum, identified by appendiceal orifice and ileocecal valve. Thecolonoscopy was performed without difficulty. The patient tolerated the procedure well. The quality of the bowel preparation was good. The ileocecal valve, appendiceal orifice, and rectum were photographed. Complications: No immediate complications. Estimated Blood Loss & Specimen: Estimated blood loss: none. Specimen collected - Yes and sent to Laboratory Findings: The perianal and digital rectal examinations were normal. A 5 mm polyp was found in the cecum. The polyp was sessile. The polyp was removed with a cold snare. Resection and retrieval werecomplete. The exam was otherwise without abnormality. Impressions/Post-Op Diagnosis: - One 5 mm polyp in the cecum, removed with a cold snare. Resectedand retrieved. - The examination was otherwise normal. Recommendation: - Patient has a contact number available for emergencies. The signsand symptoms of potential delayed complications were discussed with the patient. Return to normal activities tomorrow. Written discharge instructions were provided to the patient. - Resume previous diet. - Continue present medications. - Await pathology results. - Repeat colonoscopy is recommended. The colonoscopy date will be determined after pathology results from today's exam become available for review. - Avoid heavy lifting greater than 30 lbs., asprin/ nonsteroidal medicines, exercise and strenuous activity for 2 weeks. Moderate Sedation: Moderate (conscious) sedation was administered by the endoscopy nurse and supervised by the endoscopist. The following parameters were monitored: oxygen saturation, heart rate, respiratory rate, blood pressure, adequacy of pulmonary ventilation and reponse to care. Please refer to the patient's medical record flowsheets and nursing notes for moderate sedation details. Total physician intraservice time was 22 minutes. Marlo Pulido MD 04/07/2021 11:42:15 AM This report has been signed electronically. Note Initiated On: 04/07/2021 10:00 AM Procedure Code(s): --- Professional --- 24076, Colonoscopy, flexible; with removalof tumor(s), polyp(s), or other lesion(s) bysnare technique Diagnosis Code(s): --- Professional --- Z12.11, Encounter for screening formalignant neoplasm of colon K63.5, Polyp of colon CPT copyright 2020 [employer]. All rights reserved. The codes documented in this report are preliminary and upon assistant professor of physics reviewmay be revised to meet current compliance requirements. Scope In: 11:17:28 AM Scope Withdrawal Time 0 hours 11 minutes 13 seconds Scope Out: 11:37:54 AM Marlo Pulido MD PROCEDURE ORD * RETAIL WAREHOUSE SUPERVISOR THIN PREP PAP SCREEN IMAGED [[id number]] (02/12/2020 9:00 AM CDT) Case Report Gynecologic Cytology Report Case: [id number] Authorizing Provider: Trinh Barragan MD Collected: 02/12/2020 0900 Ordering Location: [facility] Received: 02/12/2020 1021 Clinic First Screen: Sukhjinder Choudhary Specimen: RETAIL WAREHOUSE SUPERVISOR ThinPrep Vial Screening, Cervical 02/25/2020 8:39 AM CDT [facility] INTERPRETATION/ RESULT NEGATIVE FOR INTRAEPITHELIAL LESION OR MALIGNANCY (NIL) (none) 02/25/2020 8:39 AM CDT [facility] IMEN ADEQUACY Satisfactory for evaluation No endocervical component seen 02/25/2020 8:39 AM CDT [facility] HPV REQUEST HPV and PAP 02/25/2020 8:39 AM CDT [facility] Date of LMP ablation 02/25/2020 8:39 AM CDT [facility] Last Pap Date 01/30/17 02/25/2020 8:39 AM CDT [facility] Last Pap Result NIL 0 8:39 AM CDT [facility] Abnormal Pap or Bradley Bx in last 5 years No 02/25/2020 8:39 AM CDT [facility] Menstrual Status Hormonally Suppressed 02/25/2020 8:39 AM CDT [facility] Bradley Bx Done Today No 02/25/2020 8:39 AM CDT [facility] Additional Information None given 02/25/2020 8:39 AM CDT [facility] Comment: Cytology is screened at [facility] - [address], [place] [address] and [facility] - [address], [place] [address] and [facility] - [address] [place] [address] Interpreted at [facility] - [address], [place] [address] Automated Review Successful 02/25/2020 8:39 AM CDT [facility] Comment:Specimen processed s uccessfully by automated safety advisor device, ThinPrep Imaging System, [employer] ANCILLARY TESTING RETAIL WAREHOUSE SUPERVISOR HPV Ordered, Please see separate report 02/25/2020 8:39 AM CDT [facility] Note The pap test is a screening technique, not a diagnostic procedure. It is used primarily to screen for squamous cancers and precursor lesions. Published studies have shown that it is subject to both false negative and false positive results. The pap test should not be used as the sole means to diagnose or exclude pre-malignant and malignant lesions. 02/25/2020 8:39 AM CDT [facility] Other (Cervical) Non-Blood / Unknown 02/12/2020 9:00 AM CDT 02/12/2020 10:21 AM CDT Trinh Barragan MD PATHOLOGY/CYTOLOGY [facility] [address] [place] [address], from Last 3 Months or Most Recently Relevant to Health Maintenance Advance Directives * Full Code (Latest Code Status on File) Date Activated Date Inactivated Comments 10/10/2005 7:06 PM 10/11/2005 5:46 PM * Full Code Date Activated Date Inactivated Comments 10/10/2005 4:13 PM 10/10/2005 7:06 PM * Full Code Date Activated Date Inactivated Comments 10/10/2005 10:29 AM 10/10/2005 4:13 PM Care Teams Salesperson [employer] Relationship Specialty Start Date End Date Trinh Barragan MD [address] [place] [address] PCP - General Family Practice 01/21/19
--- OUTSIDE RECORDS SUMMARY | 2024-05-22 19:47 | XMS_ITS | Continuity of Care Document ---
Author Organization [facility], [facility] Address [address] [place] [address] Care Team Providers Care Radio Assembler Name Role Phone NATALI BRUNO Primary Care Provider Assessment No assessment recorded. Plan of Treatment Reminders Order Date Submit Date Provider Last Modified By Organization Details Last Modified Time Details Appointments None recorded. Lab urinalysi s, dipstick 2023 024 [facility], [address], [place], [address], 4 10:49:16 urinary tract pathogens panel, NICOLE+probe , urine - add on labs: Chlamydia Trachomat is, Cytomegal ovirus, Herpes Simplex Virus (HSV) types 1/2, LATHA Virus, BK Virus, MRSA Phenotype s, Mycobacte rium Tuberculo sis, Nesseria Gonorrhea , Trichomon as Vaginalis 2023 024 [facility], [address] [facility] [place], [address], 4 09:48:22 Referral None recorded. Procedures None recorded. Surgeries None recorded. Imaging None recorded. Medication Orders None recorded. Patient TargetsNo targets recorded. Patient InstructionsNo instructions recorded. Reason for Referral None Reported. Results Created Date Observation Date Name Description Value Unit Range Abnormal Flag Note LastModifiedBy Organization Detail LastModifiedTime 05/04/20 24 05/04/2024 urina lysis , dipst ick BLOOD Trace (5 RBC/uL ) Not Available [facility] [address], [place], [address], 04/30/2024 09:21:36 05/04/20 24 05/04/2024 urina lysis , dipst ick BILIRUBIN Negati ve Not Available [facility] [address], [place], [address], 04/30/2024 09:21:36 05/04/20 24 05/04/2024 urina lysis , dipst ick UROBILINOGEN 0.2 mg/dL (Norm) Not Available [facility] [address], [place], [address], 04/30/2024 09:21:36 05/04/20 24 05/04/2024 urina lysis , dipst ick KETONES Negati ve Not Available [facility] [address], [place], [address], 04/30/2024 09:21:36 05/04/20 24 05/04/2024 urina lysis , dipst ick PROTEIN Negati ve Not Available [facility] [address], [place], [address], 04/30/2024 09:21:36 05/04/20 24 05/04/2024 urina lysis , dipst ick NITRITES Negati ve Not Available [facility] [address], [place], [address], 04/30/2024 09:21:36 05/04/20 24 05/04/2024 urina lysis , dipst ick GLUCOSE Negati ve Not Available [facility] [address], [place], [address], 04/30/2024 09:21:36 05/04/20 24 05/04/2024 urina lysis , dipst ick p.H. 6.0 Not Available [facility] [address], [place], [address], 04/30/2024 09:21:36 05/04/20 24 05/04/2024 urina lysis , dipst ick S.G. (Specific [place]) 1.010 Not Available [facility] [address], [place], [address], 04/30/2024 09:21:36 05/04/20 24 05/04/2024 urina lysis , dipst ick LEUKOCYTES Negati ve Not Available [facility] [address], [place], [address], 04/30/2024 09:21:36 04/29/20 24 11/08/2023 CT, urogr am No observ ation record ed. [email or web address] Not Available 11:45:34 Result Notes None recorded. Procedures Surgical History Date Name Laterality Status Provider Name and Address Organization Details Recorded Time Bladder Scan completed EVERETT CASAS PA-C [address] [place] [address],[address], [address], [facility] 05/04/2024 10:45:44 section completed EVERETT CASAS PA-C [address] [place] [address],[address], [address] [place] [address], [facility] 05/04/2024 10:43:10 Imaging Results None recorded. Procedure Notes None recorded. Medical Equipment None [...] Updated DateTime 05/04/2024 170.18 cm 26.9 kg/m2 06188.89 g EVERETT CASAS PA-C [address] [place] [address],[address], [address] [place] [address] Urology 05/04/2024 10:41:16 Social History Question Answer Notes LastModified by Organizat ion Details LastModified Time Tobacco Smoking Status Never Smoker EVERETT CASAS PA-C [address] [place] [address],[address], [id number] [place] [address] Urology 05/04/2024 10:42:20 What Is Your Level [...] available 05/04 10:42:08 Medical History Condition Response Other N High Blood Pressure N Kidney Stones N Lung Disease N Depression N GERD/Acid Reflux N Sexually Transmitted Infection N Cancer N High Cholesterol N Diabetes N Bleeding Disorder N Heart Disease N Gynecological HistoryNo gynecological history recorded. Obstetrics History GPAL:G 0 P 0 0 0 0 Immunizations Vaccine Type Date Status Provider Name and Address Organization Details Recorded Time Influenza, split virus, quadrivalent, preservative 03/19/2023 completed Larissa prajapati [facility] 05/04/2024 10:33:19 zoster recombinant 01/21/2019 completed Larissa prajapati [facility] 05/04/2024 10:33:19 zoster recombinant 02/12/2020 completed Larissa prajapati [facility] 05/04/2024 10:33:19 COVID-19, mRNA, LNP-S, PF, 100 mcg/0.5mL dose or 50 mcg/0.25mL dose 07/27/2020 completed Larissa prajapati [facility] 05/04/2024 10:33:19 COVID-19, mRNA, LNP-S, PF, 100 mcg/0.5mL dose or 50 mcg/0.25mL dose 08/24/2020 completed [facility] 05/04/2024 10:33:19 COVID-19, mRNA, LNP-S, PF, 100 mcg/0.5mL dose or 50 mcg/0.25mL dose 01/31/2022 completed Larissa prajapati [facility] 05/04/2024 10:33:19 COVID-19, mRNA, LNP-S, PF, 100 mcg/0.5mL dose or 50 mcg/0.25mL dose 05/18/2021 completed Lar[facility]apati [facility] 05/04/2024 10:33:19 COVID-19, mRNA, LNP-S, PF, 50 mcg/0.5 mL 03/19/2023 completed Larissa Ronningen null, [facility] 05/04/2024 10:33:19 COVID-19, mRNA, LNP-S, PF, 50 mcg/0.5 mL 03/26/2024 completed Larissa Ronningen null, [facility] 05/04/2024 10:33:19 Tdap 01/25/2012 completed Larissa Ronningen null, [facility] 05/04/2024 10:33:19 Tdap 02/06/2022 completed Larissa Ronningen null, [facility] 05/04/2024 10:33:19 Influenza, split virus, trivalent, preservative 03/07/2012 completed Larissa Ronningen null, [facility] 05/04/2024 10:33:19 Influenza, split virus, trivalent, PF 03/26/2024 completed Larissa Ronningen null, [facility] 05/04/2024 10:33:19 Td (adult), 2 Lf tetanus toxoid, preservative free, adsorbed 11/29/2001 completed Larissa Ronningen null, [facility] 05/04/2024 10:33:19 Hep A, adult 01/30/2017 completed Larissa Ronningen null, [facility] 05/04/2024 10:33:19 Hep A, adult 02/03/2021 completed Larissa Ronningen null, [facility] 05/04/2024 10:33:19 Influenza, split virus, quadrivalent, PF 08/26/2019 completed Larissa Ronningen null, [facility] 05/04/2024 10:33:19 Influenza, split virus, quadrivalent, PF 02/12/2020 completed Larissa Ronningen null, [facility] 05/04/2024 10:33:19 Influenza, split virus, quadrivalent, PF 03/12/2014 completed Larissa Ronningen null, [facility] 05/04/2024 10:33:19 Influenza, split virus, quadrivalent, PF 03/13/2022 completed Larissa Ronningen null, [facility] 05/04/2024 10:33:19 Influenza, split virus, quadrivalent, PF 03/23/2015 completed Larissa Dionisiobecky DELLA prajapati - [facility] 05/04/2024 10:33:19 Influenza, split virus, quadrivalent, PF 04/27/2021 completed Larissa Dionisiobecky DELLA prajapati - [facility] 05/04/2024 10:33:19 Past Encounters Encounter ID Performer Location Encounter Start Date Encounter Closed Date Diagnosis/Indication Diagnosis SNOMED-CT Code Diagnosis ICD10 Code [id number] Larissa Perez [facility] [address] [place] [address] 05/04/2024 10:22:28 05/06/2024 09:58:48 Blood in urine 67210598 R31.9 Health Concerns Section Related Observation LastModified by Organization Detai ls LastModified Time None Recorded Concern Status LastModified by Organization Details LastModified Time None Recorded Payers Encounter Date Sequence Insurance Name Policy Number Policy Jacobson Covered Member ID Jacobson Member ID Guarantor Name 05/04/2024 1 [place] [id number] Salvador Carrilloehl [id number] Laureen Rogers Notes Date Note Type Note [...] Hx: Recent imaging: CT urogram unremarkable (11/08/23) Larissa prajapati [place] [facility] 05/04/2024 11:54:21 OBGyn Episode No OBEpisode recorded.
== END 2024-05-22 20:49 | disposition home or self-care (01) ==
PROVIDERS: Emergency Provider Emergency Medicine; PCP Family Medicine
DX: S63.601A Unspecified sprain of right thumb, initial encounter (principal); W19.XXXA Unspecified fall, initial encounter
CPT/HCPCS: 73140; 99282; 99283; A9270